=== PATIENT | female | born 1985 | race African-American/Black ===

== ENCOUNTER 2016-08-06 21:48 | Emergency (ER) | payer BC ==
[~2016-08-06] VITALS: Ht 157.5 cm; Wt 67.5 kg
[2016-08-06 22:30] LABS: HEMATOCRIT 40.1 % (36.0-46.0); MCH 29.3 PG (29.0-34.0); MCHC 31.9 G/DL (30.0-36.0); MCV 91.8 FL (83-99); MEAN PLAT.VOLUME 9.2 uM^3 (9.5-12.4); PLATELET COUNT 308 K/uL (156-360); RBC DIS.WIDTH-CV 11.9 % (11.8-14.6); RBC DIS.WIDTH-SD 40.2 % (39-53); RED BLOOD COUNT 4.37 M/uL (3.80-5.20); WHITE BLOOD COUNT 7.6 K/uL (4.1-10.2)
[2016-08-06 22:39] LABS: CHLORIDE 104 mEq/L (99-109); POTASSIUM 3.8 mEq/L (3.7-5.4); SODIUM 138 mEq/L (136-147)
[2016-08-06 22:40] LABS: GLUCOSE 99 mg/dL (70-99)
[2016-08-06 22:42] LABS: ANION GAP 8 MEQ/L (2-14)
[2016-08-06 22:45] LABS: UREA NITROGEN (BUN) 15 mg/dL (9-23)
[2016-08-06 22:47] LABS: GFR ESTIMATE (CALCULATED) > 59 mL/min/
[2016-08-06] MEDS ORDERED: SUDAFED PE PRE1 EAC2 PO (23:07)
[2016-08-06] MEDS ORDERED: AZITHROMYCIN250 MG PO (23:07)
[2016-08-06 23:11] LABS: QUANTITATIVE HCG < 4.0 MIU/ML
[2016-08-06 23:27] VITALS: BP 143/99
== END 2016-08-06 23:31 | disposition home or self-care (01) ==
LOC: EME 21:48
DX: J01.90 Acute sinusitis, unspecified (principal); R51 Headache
CPT/HCPCS: 71020; 80048; 84702; 85027; 87651 90; 99281; 99284